=== PATIENT | male | born 1970 | race Caucasian/White ===

== ENCOUNTER 2016-12-07 11:45 | Emergency (ER) | payer OTHER ==
[2016-12-07 13:04] LABS: HEMOGLOBIN 16.3 gm/dl (14.0-17.5); RED BLOOD COUNT 5.27 M/UL (4.20-5.50); WHITE BLOOD COUNT 14.9 K/UL (4.5-11.0)
[2016-12-07 13:28] LABS: BUN/CREATININE RATIO 12 (0-10)
== END 2016-12-07 17:28 | disposition home or self-care (01) ==
LOC: ER1 11:45
PROVIDERS: Physician Assistant Medical
DX: R10.11 Right upper quadrant pain (principal); F17.210 Nicotine dependence, cigarettes, uncomplicated
CPT/HCPCS: 36415; 71101; 80053; 81001; 83690; 85025; 99284; J7050; Q9962